=== PATIENT | female | born 1975 | race African-American/Black ===

== ENCOUNTER 2020-01-17 09:56 | Emergency (ER) | payer OTHER ==
[2020-01-17 10:08] VITALS: BMI 33.6
[2020-01-17] MEDS ORDERED: ONDANSETRON 4 MG/2 ML VIAL IVPUSH ONE (10:10)
[2020-01-17] MEDS ORDERED: ACETAMINOPHEN 1000 MG/100 ML VIAL (NON FORMULARY) IVPB ONE (10:10)
[2020-01-17] MEDS ORDERED: ACETAMINOPHEN INJECTION 100 ML IVPB ONE (10:13)
[2020-01-17 10:28] LABS: BASO % 0.5 % (0-2.0); EOS % 0.9 % (0-4.5); HEMATOCRIT 30.8 % (32.4-45.2); HEMOGLOBIN 9.7 GM/dL (10.7-15.3); LYMPH % 19.8 % (8-40); MCH 22.5 pg (25.7-33.7); MCHC 31.6 g/dl (32.0-36.0); MEAN CELL VOLUME 71.1 fl (80-96); MEAN PLT VOLUME 10.1 fl (7.5-11.1); MONO % 4.4 % (3.8-10.2); NEUT % 74.4 % (42.8-82.8); PLATELET COUNT 281 K/MM3 (134-434); RBC 4.33 M/mm3 (3.60-5.2); RDW 18.2 % (11.6-15.6); WHITE BLOOD COUNT 10.6 K/mm3 (4.0-10.0)
[2020-01-17 10:37] LABS: PH,URINE 7.5 (5.0-8.0); URINE APPEARANCE CLOUDY; URINE BILIRUBIN NEGATIVE (NEGATIVE); URINE COLOR YELLOW; URINE GLUCOSE (UA) NEGATIVE (NEGATIVE); URINE KETONE NEGATIVE (NEGATIVE); URINE LEUK ESTERASE NEGATIVE (NEGATIVE); URINE NITRITE NEGATIVE (NEGATIVE); URINE PROTEIN NEGATIVE (NEGATIVE); URINE UROBILINOGEN 0.2 mg/dL (0.2-1.0)
[2020-01-17 10:52] LABS: POTASSIUM 3.7 mmol/L (3.5-5.1)
[2020-01-17 10:54] LABS: CALCIUM 9.9 mg/dL (8.5-10.1)
[2020-01-17 10:55] LABS: ALBUMIN 3.7 g/dl (3.4-5.0); BLOOD UREA NITROGEN 9.4 mg/dL (7-18)
[2020-01-17 10:58] LABS: CREATININE 0.7 mg/dL (0.55-1.3)
[2020-01-17 10:59] LABS: BILIRUBIN,TOTAL 0.4 mg/dL (0.2-1)
[2020-01-17] MEDS ORDERED: morphine CARPU-JECT 4 MG/1 ML DISP.SYRIN IVPUSH ONE ×3 (11:09→12:47)
[2020-01-17 11:25] LABS: INR 0.98 (0.83-1.09); PROTHROMBIN TIME (PATIENT) 11.9 SEC (9.7-13.0)
[2020-01-17 11:28] LABS: ACTIVATED PTT 24.5 SECONDS (25.2-36.5)
[2020-01-17] MEDS ORDERED: morphine SULFATE 4 MG/ML VIAL ONE (12:55)
[2020-01-17 16:55] VITALS: BP 122/47; PULSE 70; TEMP 99
== END 2020-01-17 17:20 | disposition short-term general hospital (02) ==
LOC: JER 09:56
DX: R19.03 Right lower quadrant abdominal swelling, mass and lump (principal); R10.9 Unspecified abdominal pain
CPT/HCPCS: 36415; 71045-TC-FY; 74177-TC; 76830-TC; 80053; 81003; 83605; 83690; 83735; 84703; 85025; 85610; 85730; 86850; 86900; 86901; 87086; 93005; 93010; 99291; C9803; J0131; Q9967; U0003

== ENCOUNTER 2021-07-25 11:22 | Emergency (ER) | payer BC ==
[2021-07-25 11:49] VITALS: TEMP 98.5; BMI 34.4
[2021-07-25] MEDS ORDERED: ONDANSETRON 4 MG/2 ML VIAL IVPUSH ONE (11:56)
[2021-07-25] MEDS ORDERED: SODIUM CHLORIDE 0.9% 500 ML INFUS.BAG IV ONE (11:56)
[2021-07-25] MEDS ORDERED: morphine CARPU-JECT 4 MG/1 ML DISP.SYRIN IVPUSH ONE (11:58)
[2021-07-25] MEDS ORDERED: ONDANSETRON 4 MG/2 ML VIAL ONE (12:06)
[2021-07-25] MEDS ORDERED: morphine SULFATE 4 MG/ML VIAL ONE (12:06)
[2021-07-25 12:47] LABS: BASO % 1.4 % (0-2.0); EOS % 2.1 % (0-4.5); HEMATOCRIT 29.1 % (32.4-45.2); HEMOGLOBIN 9.1 GM/dL (10.7-15.3); LYMPH % 31.5 % (8-40); MCH 21.6 pg (25.7-33.7); MCHC 31.5 g/dl (32.0-36.0); MEAN CELL VOLUME 68.5 fl (80-96); MEAN PLT VOLUME 9.1 fl (7.5-11.1); PLATELET COUNT 302 10^3/uL (134-434); RBC 4.24 M/mm3 (3.60-5.2); RDW 19.1 % (11.6-15.6); WHITE BLOOD COUNT 7.3 K/mm3 (4.0-10.0)
[2021-07-25 13:02] LABS: CHLORIDE 106 mmol/L (98-107); SODIUM 132 mmol/L (136-145)
[2021-07-25 13:04] LABS: CALCIUM 9.5 mg/dL (8.5-10.1)
[2021-07-25 13:05] LABS: ALBUMIN 3.2 g/dl (3.4-5.0); BLOOD UREA NITROGEN 10.2 mg/dL (7-18); CO2 23 mmol/L (21-32); GLUCOSE,RANDOM 102 mg/dL (74-106); LIPASE 153 U/L (73-393)
[2021-07-25 13:06] LABS: ANISOCYTOSIS 3+; MACROCYTOSIS 0
[2021-07-25 13:07] LABS: CREATININE 0.7 mg/dL (0.55-1.3)
[2021-07-25 13:09] LABS: BILIRUBIN,TOTAL 0.4 mg/dL (0.2-1); TOT PROT 8.4 g/dl (6.4-8.2)
[2021-07-25 13:11] LABS: ALK PHOS 165 U/L (45-117); ANION GAP 3 MMOL/L (8-16); SGOT/AST 142 U/L (15-37); SGPT/ALT 33 U/L (13-61)
[2021-07-25 14:44] LABS: EPI CELLS 6 /uL (0-25.1); HYALINE CASTS 0 /uL (0-3.1); PH,URINE 7.5 (5.0-8.0); URINE APPEARANCE TURBID; URINE BACTERIA 58 /uL (0-1359); URINE BILIRUBIN NEGATIVE (NEGATIVE); URINE COLOR YELLOW; URINE GLUCOSE (UA) NEGATIVE (NEGATIVE); URINE KETONE NEGATIVE (NEGATIVE); URINE LEUK ESTERASE NEGATIVE (NEGATIVE); URINE NITRITE NEGATIVE (NEGATIVE); URINE PROTEIN 1+ (NEGATIVE); URINE RBC 7 /uL (0-23.9); URINE UROBILINOGEN 0.2 mg/dL (0.2-1.0); URINE WBC 2 /uL (0-25.8)
[2021-07-25 14:51] LABS: HCG,QUALITATIVE URINE Negative
[2021-07-25 18:56] VITALS: BP 149/74; PULSE 79
== END 2021-07-25 18:56 | disposition home or self-care (01) ==
LOC: JER 11:22
PROC: 3E033NZ Introduction of Analgesics, Hypnotics, Sedatives into Peripheral Vein, Percutaneous Approach (ICD-10-PCS; principal; 2021-07-25)
PROC: 3E033GC Introduction of Other Therapeutic Substance into Peripheral Vein, Percutaneous Approach (ICD-10-PCS; 2021-07-25)
DX: R10.2 Pelvic and perineal pain (principal)
CPT/HCPCS: 36415; 71046-TC-FY; 74177-TC; 76830-TC; 80053; 81003; 83690; 84132; 84703; 85025; 87086; 99285-25; Q9967

== ENCOUNTER 2023-03-27 08:44 | Inpatient (IN) | payer BC ==
[2023-03-27] MEDS ORDERED: SODIUM CHLORIDE 1,000 ML IV STA (09:17)
[2023-03-27 10:08] VITALS: BMI 31.4
[2023-03-27 11:16] LABS: BASO % 1.5 % (0-2.0); EOS % 0.1 % (0-4.5); HEMATOCRIT 25.1 % (32.4-45.2); HEMOGLOBIN 7.8 GM/dL (10.7-15.3); LYMPH % 21.9 % (8-40); MCHC 30.8 g/dl (32.0-36.0); MEAN CELL VOLUME 64.7 fl (80-96); MONO % 5.1 % (3.8-10.2); NEUT % 71.4 % (42.8-82.8); PLATELET COUNT 321 10^3/uL (134-434); RBC 3.89 M/mm3 (3.60-5.2); RDW 18.6 % (11.6-15.6)
[2023-03-27 11:41] LABS: POTASSIUM 3.8 mmol/L (3.5-5.1)
[2023-03-27 11:43] LABS: CALCIUM 10.9 mg/dL (8.5-10.1)
[2023-03-27 11:44] LABS: ALBUMIN 3.5 g/dl (3.4-5.0); BLOOD UREA NITROGEN 12.9 mg/dL (7-18)
[2023-03-27 11:46] LABS: MAGNESIUM 2.1 mg/dL (1.8-2.4); PHOSPHOROUS 2.8 mg/dL (2.5-4.9)
[2023-03-27 11:47] LABS: CREATININE 0.8 mg/dL (0.55-1.3)
[2023-03-27 11:48] LABS: BILIRUBIN,TOTAL 0.6 mg/dL (0.2-1); TOT PROT 7.8 g/dl (6.4-8.2)
[2023-03-27 11:57] LABS: EPI CELLS 29 /uL (0-25.1); HYALINE CASTS 0 /uL (0-3.1); URINE APPEARANCE CLEAR; URINE BACTERIA 615 /uL (0-1359); URINE BILIRUBIN NEGATIVE (NEGATIVE); URINE COLOR RED; URINE GLUCOSE (UA) NEGATIVE (NEGATIVE); URINE KETONE NEGATIVE (NEGATIVE); URINE LEUK ESTERASE TRACE (NEGATIVE); URINE NITRITE NEGATIVE (NEGATIVE); URINE PROTEIN 1+ (NEGATIVE); URINE RBC 6608 /uL (0-23.9); URINE WBC 49 /uL (0-25.8)
[2023-03-27 12:05] LABS: HCG,QUALITATIVE URINE Negative
[2023-03-27 12:54] LABS: INR 1.11 (0.83-1.09); PROTHROMBIN TIME (PATIENT) 12.9 SEC (9.7-13.0)
[2023-03-27 12:56] LABS: ACTIVATED PTT 26.1 SECONDS (25.2-36.5)
[2023-03-27] MEDS ORDERED: ASPIRIN 325 MG TABLET PO ONE (14:01)
[2023-03-27] MEDS ORDERED: ASPIRIN 325 MG TABLET ONE (14:23)
[2023-03-27] MEDS: ENOXAPARIN NA (PORCINE) 80 MG/0.8 ML DISP.SYRIN SQ SCH (14:32)
[2023-03-28] MEDS: ENOXAPARIN NA (PORCINE) 80 MG/0.8 ML DISP.SYRIN SQ SCH (02:26)
[2023-03-28 09:06] LABS: BASO % 1.5 % (0-2.0); EOS % 1.8 % (0-4.5); HEMATOCRIT 25.6 % (32.4-45.2); HEMOGLOBIN 7.6 GM/dL (10.7-15.3); LYMPH % 49.3 % (8-40); MCHC 29.5 g/dl (32.0-36.0); MEAN PLT VOLUME 10.1 fl (7.5-11.1); MONO % 5.7 % (3.8-10.2); NEUT % 41.7 % (42.8-82.8); PLATELET COUNT 290 10^3/uL (134-434); RBC 3.88 M/mm3 (3.60-5.2); RDW 18.8 % (11.6-15.6); WHITE BLOOD COUNT 5.5 K/mm3 (4.0-10.0)
[2023-03-28 09:08] LABS: MCH 19.5 pg (25.7-33.7)
[2023-03-28 09:20] LABS: POTASSIUM 3.7 mmol/L (3.5-5.1)
[2023-03-28 09:48] LABS: CALCIUM 10.1 mg/dL (8.5-10.1)
[2023-03-28 09:49] LABS: BLOOD UREA NITROGEN 10.4 mg/dL (7-18)
[2023-03-28 09:52] LABS: CREATININE 0.7 mg/dL (0.55-1.3)
[2023-03-28] MEDS ORDERED: ASPIRIN 81 MG CHEWABLE TABLETS PO SCH (11:45)
[2023-03-28 12:01] LABS: MAGNESIUM 2.1 mg/dL (1.8-2.4)
[2023-03-28 14:33] VITALS: RESP 16; TEMP 98.4
[2023-03-28 15:01] VITALS: BP 135/74; PULSE 59
[2023-03-28 15:38] LABS: ANISOCYTOSIS 1+; MACROCYTOSIS 0; OVALOCYTE 1+; TARGET CELLS 1+
[2023-03-28] MEDS ORDERED: ATORVASTATIN CA 40 MG TABLET (FP) PO SCH (22:00)
[2023-03-29] MEDS ORDERED: ENOXAPARIN NA (PORCINE) 40 MG/0.4 ML DISP.SYRIN SQ SCH (10:00)
== END 2023-03-28 17:42 | disposition short-term general hospital (02) | DRG 281 ==
LOC: JER 08:44 → JERBED 13:56 → J4S 22:20
PROVIDERS: ADMIT Internal Medicine; ATTEND Internal Medicine
DX: I21.4 Non-ST elevation (NSTEMI) myocardial infarction (principal); I45.2 Bifascicular block; I45.10 Unspecified right bundle-branch block; D64.9 Anemia, unspecified; N92.0 Excessive and frequent menstruation with regular cycle
CPT/HCPCS: 0241U-QW; 36415; 71275-TC; 80048; 80053; 81003; 82728; 82962; 83540; 83550; 83735; 84100; 84466; 84484; 84703; 85025; 85379; 85610; 85730; 87086; 93005; 93010; 93306-TC; 99285-25; Q9967